=== PATIENT | male | born 1965 | race African-American/Black ===

== ENCOUNTER 2020-12-14 15:08 | Emergency (ER) | payer OTHER, BC ==
[~2020-12-14 15:08] MED LIST: Iopamidol-370 76% 500 ML 1 ML ONE
[2020-12-14 16:04] LABS: Troponin I Less than 0.010 ng/mL (< 0.028)
[2020-12-14 16:13] LABS: ALT (SGPT) 10 U/L (8-55); AST (SGOT) 13 U/L (5-34); Albumin 3.7 g/dL (3.5-5.0); Alcohol Less than 10 mg/dL (Less than 10); Alkaline Phosphatase 72 U/L (40-110); Anion Gap 13 mmol/L (10-20); BUN (Urea Nitrogen) 23 mg/dL (8.4-25.7); Bilirubin, Total 0.3 mg/dL (0.2-1.2); Calc. Creatinine Clearance 0 mL/min (70-130); Calcium 8.5 mg/dL (7.8-10.44); Carbon Dioxide 21 mmol/L (22-29); Chloride 111 mmol/L (98-107); Glucose 98 mg/dL (70-105); Lipase 35 U/L (8-78); Potassium 3.6 mmol/L (3.5-5.1); Protein, Total 5.7 g/dL (6.0-8.3); Sodium 141 mmol/L (136-145)
[2020-12-14] MEDS ORDERED: Acetaminophen 500 MG TAB ONE (16:24)
[2020-12-14 16:48] LABS: Mean Corpuscular HGB CONC 32.2 g/dL (32.0-36.0); Mean Corpuscular Hemoglobin 30.6 pg (27.0-31.0); Mean Platelet Volume 8.8 fL (7.4-10.4); Platelet Count 106 thou/uL (130-400); Red Blood Cell (RBC) Count 4.58 mill/uL (4.70-6.10); White Blood Cell (WBC) Count 3.9 thou/uL (4.8-10.8)
[2020-12-14 17:10] LABS: Eosinophils 2 % (0-10); Lymphocytes 42 % (21-51); MDiff Complete? YES; Monocytes 9 % (0-10); Neutrophil 47 % (42-75); Platelet Morphology Comment Appears Decreased; RBC Morphology Normal
== END 2020-12-14 17:15 | disposition home or self-care (01) ==
LOC: ERS 15:08
DX: S20.219A Contusion of unspecified front wall of thorax, initial encounter (principal); R51.9 Headache, unspecified; V89.2XXA Person injured in unspecified motor-vehicle accident, traffic, initial encounter
CPT/HCPCS: 36415; 36416; 70450; 71045; 71260; 72125; 72170; 74177; 80053; 80307; 83605; 83690; 84484; 85025; 93005; Q9967